=== PATIENT | female | born 1985 | race African-American/Black ===

== ENCOUNTER 2018-07-15 11:55 | Inpatient (IN) ==
[2018-07-15 12:32] LABS: Apearance,Urine Slightly Hazy (Clear); Bilirubin,Urine Negative (Negative); Blood, Urine Negative (Negative); Glucose,Urine (UA) Negative (Negative); Ketones,Urine 5 mg/dL (Negative); Mucus,Urine Few /LPF (Occasional); Nitrite,Urine Negative (Negative); Protein,Urine 30 MG/DL; RBC,Urine 1 /HPF (0-4); Squamous Epithelial Cell,Urine Few /HPF (0-10); Urine Color Yellow (Yellow); Urine Specific Gravity 1.019 (1.001-1.035); Urine Urobilinogen < 2.0 EU/DL (0.2-1.0); WBC,Urine 1 /HPF (0-6)
[2018-07-15] MEDS ORDERED: BUTORPHANOL 2 MG/ML VIAL IV PRN (13:57)
[2018-07-15] MEDS ORDERED: ONDANSETRON 4 MG/2 ML VIAL IV PRN (13:57)
[2018-07-15] MEDS ORDERED: hydrALAZINE 20 MG/1 ML VIAL IV ONE ×2 (14:01→15:45)
[2018-07-15 14:26] LABS: Basophils % 0.1 % (0.0-0.8); Eosinophils % 0.5 % (0.00-10.9); Hematocrit 31.1 VOL% (35.7-47.0); Hemoglobin 9.7 GM/DL (12.0-16.0); Immature Granulocytes % 0.5 %; Immature Granulocytes Absolute 0.04 #; Lymphocytes # 1.4 10*3/uL (1.4-4.0); Lymphocytes % 18.5 % (21.3-54.2); Mean Corpuscular HGB Conc 31.2 GM/DL (32-36); Mean Corpuscular Hemoglobin 26 PG (27-34); Mean Corpuscular Volume 84.5 FL (87-102); Mean Platelet Volume 11.9 FL (9.6-12.0); Monocytes # 0.6 10*3/uL (0.11-0.8); Monocytes % 7.2 % (1.7-12.7); Neutrophils # 5.7 10*3/uL (1.4-7.4); Neutrophils % 73.2 % (38.7-73.9); Platelet Count 149 T/CUMM (130-400); Red Blood Count 3.68 MC/CUMM (3.8-5.5); Red Cell Distribution Width 14.9 % (9.3-17.3); White Blood Count 7.8 T/CUMM (4-12)
[2018-07-15] MEDS: LACTATED RINGERS 1,000 ML IV SCH (14:29)
[2018-07-15] MEDS ORDERED: BETAMETH SODIUM PHOS/ACETATE 30 MG/5 ML VIAL IM SCH (14:30)
[2018-07-15 14:56] LABS: Alanine Aminotransferase 22 U/L (13-56); Albumin 2.4 G/DL (3.4-5.0); Alkaline Phosphatase 104 U/L (45-117); Aspartate Amino Transferase 27 U/L (0-37); Bilirubin,Total < 0.39 MG/DL (0.2-1.0); Blood Urea Nitrogen 8 MG/DL (7-18); Calcium 8.6 MG/DL (8.5-10.1); Glucose 75 MG/DL (74-106); Osmolality,Calculated 277.3 MOS/KG (273-304); Potassium 3.9 MMOL/L (3.5-5.1); Sodium 141 MMOL/L (136-145); Total Protein 6.7 G/DL (6.4-8.3); Uric Acid 5.8 MG/DL (2.6-6.0)
[2018-07-15 15:17] LABS: INR 0.9; PT Patient Result 9.8 SECS; Partial Thromboplastin Time 25.3 SECS (0-40)
[2018-07-15] MEDS ORDERED: MAGNESIUM SULF RIDER 100 ML IV ONE (15:46)
[2018-07-15 16:39] LABS: Apearance,Urine CLEAR (Clear); Bilirubin,Urine Negative (Negative); Blood, Urine Small mg/dL (Negative); Glucose,Urine (UA) Negative (Negative); Hyaline Casts,Urine 1 /LPF (0-3); Ketones,Urine 80 mg/dL (Negative); Mucus,Urine Occasional /LPF (Occasional); Nitrite,Urine Negative (Negative); Protein,Urine Negative; RBC,Urine 5 /HPF (0-4); Squamous Epithelial Cell,Urine Occasional /HPF (0-10); Urine Color Yellow (Yellow); Urine Specific Gravity 1.013 (1.001-1.035); Urine Urobilinogen < 2.0 EU/DL (0.2-1.0); WBC,Urine 1 /HPF (0-6)
[2018-07-15] MEDS: MAGNESIUM SULF DRIP 40 GM/1,000 ML ML IV SCH (17:16)
[2018-07-15] MEDS ORDERED: LABETALOL 200 MG TABLET PO SCH (20:00)
[2018-07-16] MEDS: LACTATED RINGERS 1,000 ML IV SCH ×2 (00:05→13:21)
[2018-07-16 02:33] LABS: Total Protein 12 Hr Ur Result 341 MG/12HR (0-75)
[2018-07-16] MEDS ORDERED: ACETAMINOPHEN 500 MG TABLET PO ONE (02:34)
[2018-07-16] MEDS ORDERED: BETAMETH SODIUM PHOS/ACETATE 30 MG/5 ML VIAL IM ONE (02:35)
[2018-07-16 02:39] LABS: Protein/Creatinine Ratio,Urine 0.4 RATIO
[2018-07-16] MEDS: LABETALOL 200 MG TABLET PO SCH ×2 (08:12→21:18)
[2018-07-16] MEDS ORDERED: OXYTOCIN/LR 20 UNIT/1,000 ML BAG IV SCH (08:30)
[2018-07-16] MEDS ORDERED: AMPICILLIN INJ 2,000 MG in SODIUM CHLORIDE 0.9% 100 ML IV SCH (09:00)
[2018-07-16] MEDS ORDERED: NALOXONE 0.4 MG/ML VIAL IV PRN (12:49)
[2018-07-16] MEDS ORDERED: hydrOXYzine HCL 25 MG/1 ML VIAL IM PRN (12:49)
[2018-07-16] MEDS ORDERED: diphenhydrAMINE 50 MG/1 ML VIAL IV PRN ×2 (12:49)
[2018-07-16] MEDS ORDERED: PROMETHAZINE 25 MG/1 ML VIAL IM ONE (12:49)
[2018-07-16] MEDS ORDERED: ePHEDrine 50 MG/ML AMP IV PRN (12:49)
[2018-07-16] MEDS ORDERED: CITRIC ACID/SODIUM CITRATE 30 ML UDCUP PO ONE (12:50)
[2018-07-16] MEDS ORDERED: FAMOTIDINE 20 MG/2 ML VIAL IV ONE (12:51)
[2018-07-16] MEDS ORDERED: fentaNYL 2 MCG/ROPIV 0.2% EPID 100 ML EPIDURAL SCH (13:00)
[2018-07-16] MEDS: MAGNESIUM SULF DRIP 40 GM/1,000 ML ML IV SCH (13:02)
[2018-07-16 13:12] LABS: Basophils % 0.1 % (0.0-0.8); Hematocrit 31.6 VOL% (35.7-47.0); Immature Granulocytes % 1.1 %; Immature Granulocytes Absolute 0.13 #; Lymphocytes # 1.1 10*3/uL (1.4-4.0); Lymphocytes % 9.9 % (21.3-54.2); Mean Corpuscular HGB Conc 31.6 GM/DL (32-36); Mean Corpuscular Hemoglobin 27 PG (27-34); Mean Corpuscular Volume 84.9 FL (87-102); Mean Platelet Volume 11.8 FL (9.6-12.0); Monocytes # 0.5 10*3/uL (0.11-0.8); Neutrophils # 9.7 10*3/uL (1.4-7.4); Neutrophils % 84.9 % (38.7-73.9); Platelet Count 183 T/CUMM (130-400); Red Blood Count 3.72 MC/CUMM (3.8-5.5); Red Cell Distribution Width 15.4 % (9.3-17.3); White Blood Count 11.4 T/CUMM (4-12)
[2018-07-16 13:25] LABS: INR 0.9; PT Patient Result 9.6 SECS; Partial Thromboplastin Time 25.3 SECS (0-40)
[2018-07-16 13:31] LABS: Albumin 2.6 G/DL (3.4-5.0); Bilirubin,Total 0.4 MG/DL (0.2-1.0); Calcium 7.9 MG/DL (8.5-10.1); Osmolality,Calculated 267.1 MOS/KG (273-304); Potassium 4.1 MMOL/L (3.5-5.1); Total Protein 6.9 G/DL (6.4-8.3)
[2018-07-16] MEDS ORDERED: miSOPROStol 200 MCG TABLET ONE (19:48)
[2018-07-16] MEDS ORDERED: LIDOCAINE 1% 50 ML VIAL ONE (19:48)
[2018-07-16] MEDS ORDERED: METHYLERGONOVINE 0.2 MG/1 ML AMP ONE (19:49)
[2018-07-16] MEDS ORDERED: CARBOPROST TROMETHAMINE 250 MCG/ML AMP IM ONE (19:49)
[2018-07-16] MEDS ORDERED: IBUPROFEN 800 MG TABLET PO PRN (20:06)
[2018-07-16] MEDS ORDERED: OXYTOCIN/LR 20 UNIT/1,000 ML BAG IV ONE (20:06)
[2018-07-16] MEDS ORDERED: LANOLIN 50% CREAM 0.3 OZ TUBE TOP PRN (20:06)
[2018-07-16] MEDS ORDERED: WITCH HAZEL PADS 100/JAR TOP PRN (20:06)
[2018-07-16] MEDS ORDERED: BENZOCAINE 20%/MENTHOL 0.5% SPRAY 56 GM CAN TOP PRN (20:06)
[2018-07-16] MEDS ORDERED: oxyCODONE/ACETAMINOPHEN 5-325 MG TABLET PO PRN (20:06)
[2018-07-16] MEDS ORDERED: MEASLES/MUMPS/RUBELLA VACCINE 0.5 ML VIAL SUBCUT ONE (20:06)
[2018-07-16] MEDS ORDERED: DIPH/TET/ACEL PERT BOOSTER VACCINE 0.5 ML VIAL IM ONE (20:06)
[2018-07-16] MEDS ORDERED: ACETAMINOPHEN 325 MG TABLET PO PRN (20:06)
[2018-07-16] MEDS ORDERED: HYDROCORTISONE 2.5% RECTAL CREAM 30 GM TUBE TOP PRN (20:06)
[2018-07-16] MEDS ORDERED: RHO(D) IMMUNE GLOBULIN 300 MCG SYRINGE IM ONE (20:06)
[2018-07-16] MEDS ORDERED: BISACODYL 10 MG SUPP RECTAL PRN (20:06)
[2018-07-16] MEDS ORDERED: ONDANSETRON 4 MG/2 ML VIAL IV PRN (20:06)
[2018-07-17 02:58] LABS: Basophils % 0.2 % (0.0-0.8); Hematocrit 28.9 VOL% (35.7-47.0); Immature Granulocytes % 0.7 %; Immature Granulocytes Absolute 0.09 #; Lymphocytes # 1.2 10*3/uL (1.4-4.0); Lymphocytes % 9.9 % (21.3-54.2); Mean Corpuscular HGB Conc 31.1 GM/DL (32-36); Mean Corpuscular Hemoglobin 27 PG (27-34); Monocytes # 0.8 10*3/uL (0.11-0.8); Monocytes % 6.6 % (1.7-12.7); Neutrophils # 10.3 10*3/uL (1.4-7.4); Neutrophils % 82.6 % (38.7-73.9); Platelet Count 171 T/CUMM (130-400); Red Cell Distribution Width 15.6 % (9.3-17.3); White Blood Count 12.5 T/CUMM (4-12)
[2018-07-17] MEDS: DOCUSATE SODIUM 100 MG CAPSULE PO SCH ×2 (05:37→12:18)
[2018-07-17] MEDS: LABETALOL 200 MG TABLET PO SCH ×2 (08:10→20:11)
[2018-07-18] MEDS: DOCUSATE SODIUM 100 MG CAPSULE PO SCH ×3 (01:51→21:40)
[2018-07-18] MEDS: oxyCODONE/ACETAMINOPHEN 5-325 MG TABLET PO PRN ×2 (06:03→22:01)
[2018-07-18] MEDS: LABETALOL 200 MG TABLET PO SCH ×2 (08:55→21:39)
[2018-07-19] MEDS: DOCUSATE SODIUM 100 MG CAPSULE PO SCH ×2 (09:42→22:44)
[2018-07-19] MEDS: LABETALOL 200 MG TABLET PO SCH ×2 (09:42→19:52)
[2018-07-19] MEDS: oxyCODONE/ACETAMINOPHEN 5-325 MG TABLET PO PRN ×2 (17:14→23:25)
[2018-07-20] MEDS: oxyCODONE/ACETAMINOPHEN 5-325 MG TABLET PO PRN (05:15)
[2018-07-20 07:26] VITALS: BP 162/64
[2018-07-20] MEDS: LABETALOL 200 MG TABLET PO SCH (07:47)
== END 2018-07-20 13:10 | disposition home or self-care (01) | DRG 807 ==
LOC: N.LD 11:55 → N.LDOUT 11:55 → N.LD 11:57 → N.OB 07-16 20:06
PROVIDERS: ADMIT Obstetrics & Gynecology; ATTEND Obstetrics & Gynecology